=== PATIENT | female | born 1990 | race Caucasian/White ===

== ENCOUNTER 2019-11-17 05:06 | Inpatient (IN) | payer OTHER ==
--- NOTE | 2019-11-12 06:34 | PCM.LDHP ---
L&D History of Present Illness - General Date of Service: 11/17/19 Admit Problem/Dx: Admission Diagnosis/Problem Admission Diagnosis/Problem 11/12/19 06:24 Ce is a 29-year-old 2 para 1001 white female who will be admitted on 11/17/2019 at 39-0/7 weeks gestational age with an FESTUS of 11/24/2019 for an elective repeat section. Source of Information: Patient History Limitations: Reports: No Limitations - History of Present Illness Introduction:: Ce is a 29-year-old 2 para 1001 white female who will be admitted on 11/17/2019 at 39-0/7 weeks gestational age with an FESTUS of 11/24/2019 for an elective repeat section.The procedure, risks, benefits, alternatives of care including attempt at trial labor after section for an attempt at vaginal after section are all discussed in detail patient. She appears to understand and wishes to proceed. PANEL BEATER history: Patient is a 2 para 1001. FESTUS of 11/24/2019 was determined by her certain last menstrual periods starting 02/17/2019 supported by 3 ultrasounds during the course of rinsing done on 05/06/2019, 07/07/2019 at 08/04/2019. Previous section was done for failure of second stage of labor as patient pushed for 3 hours was not able to deliver the baby. She desires repeat section at this time. B strep negative. She declined genetic testing. [place] depression screening score on 07/01/2019 was 0/30. She has had flu vaccination on 07/01/2019. She plans to breast-feed. Patient is up-to-date regarding her influenza given on 07/01/2019. Her Tdap was given on 09/21/2019. She is rubella immune. She is up-to-date regarding her HPV vaccination, 2009 her hepatitis B vaccination 2017 and her meningococcal vaccination on 04/22/2008. course has been relatively unremarkable she had her first visit on 04/28/2019 had regular care throughout the . Her weight is 221.4 pounds to 243 pounds 422 pound weight gain. Vital signs remained stable throughout . Fundal height growth was appropriate. Laboratory testing shows blood to be a positive with negative CT screen. First laboratory testing showed hemoglobin 12.8 g/dL and platelets 3 240,000. She is rubella immune. RPR is nonreactive. Hepatitis B surface antigen and HIV assays were both negative. Gonorrhea and chlamydia tests were both negative. Second trimester labs showed hemoglobin 13.0 g/dL and platelets at 233,000. Diabetic screening test showed a level of 103 which was normal. Hemoglobin on 08/24/2019 was 11.3. At that time was nonreactive. Group B strep screen was negative. Allergies: None Medications: 1. vitamins daily Past medical history: Unremarkable Past surgical history: 1. 02/23/20168 lbs. 0 oz. male infant Family history: Well. Father at age 65 secondary to CVA. 5 brothers are all alive and well. 3 sisters all alive and well. Maternal grandmother is secondary to parkinsonism and old age. Paternal grandfather, paternal grandmother, paternal grandfather all deceasedcauses unknown. There is no family history of cancer, bleeding or blood clotting disorders, anesthesia related issues, related issues. She did have 1 paternal uncle secondary to oral cancer. He did have a history of smoking. Social history: Patient is . Her is Jeronimo Alvarez. She works at [employer]. They live in [place]. She does not use any significant most alcohol , drugs or tobacco. Review of systems: In general patient has no complaints. Baby has been active. No significant contractions noted. Skin: Negative Lungs: No infectious symptoms or shortness of breath Cardiovascular: No chest pain or exercise intolerance Breasts: Only changes of those associated with .. GI: Negative : changes. Musculoskeletal: Negative Neurological: Negative In general the patient is well-developed, well-nourished, pleasant female of stated age in no acute distress. On last evaluation in clinic on 11/11/2019 patient's blood pressures 128/68 her weight was 243 pounds with a pregravid weight of 221.4 pounds. Pregravid BMI was 34.2 pounds. Height is 5 feet 8 inches. heart rate was 143 pounds at last visit. Skin is warm dry without lesions. HEENT, neck and back within normal limits. Lungs are clear with good breath sounds in all lung cai. Cardiovascular exam shows regular and rhythm without murmurs. Rest exam is deferred having been done at first medical visit follow-up normal. Abdomen is gravid with fundal height of 39 cm. Baby in vertex presentation.. Genital per digital last done on 11/04/2019 shows cervix at 2 cm dilation, 60% effacement, soft, mid position and -3 station.. Extremities and neurological exam are grossly within normal limits. 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: , Other (See Below) Other OB/BYN History: dysmenorrhea Psychiatric History: Reports: Anxiety - Infectious Disease History Infectious Disease History: Reports: Chicken Pox H&P Review of Systems - Review of Systems: Review Of Systems: See Below L&D Exam - Exam Exam: See Below - Patient Data Lab Results Last 24 hrs: Laboratory Results - last 24 hr 11/11/19 11/11/19 11/11/19 Range/Units 14:56 14:56 14:56 WBC 8.76 (3.98-10.04) K/mm3 RBC 4.56 (3.98-5.22) M/mm3 Hgb 12.9 (11.2-15.7) gm/dl Hct 39.0 (34.1-44.9) % MCV 85.5 (79.4-94.8) fl MCH 28.3 (25.6-32.2) pg MCHC 33.1 (32.2-35.5) g/dl RDW Std Deviation 44.5 (36.4-46.3) fL Plt Count 250 (182-369) K/mm3 MPV 11.6 (9.4-12.3) fl Neut % (Auto) 76.5 H (34.0-71.1) % Lymph % (Auto) 14.7 L (19.3-51.7) % Potter % (Auto) 7.9 (4.7-12.5) % Eos % (Auto) 0.6 L (0.7-5.8) Baso % (Auto) 0.2 (0.1-1.2) % Neut # (Auto) 6.70 H (1.56-6.13) K/mm3 Lymph # (Auto) 1.29 (1.18-3.74) K/mm3 Potter # (Auto) 0.69 H (0.24-0.36) K/mm3 Eos # (Auto) 0.05 (0.04-0.36) K/mm3 Baso # (Auto) 0.02 (0.01-0.08) K/mm3 RPR Non-reactive (NONREACTIVE) Blood Type A POSITIVE Gel Antibody Screen Negative Result Diagrams: 11/11/19 14:56 Problem List Initiated/Reviewed/Updated: Yes Assessment/Plan Comment:: 1. 39 0/7 week intrauterine upon admission on 11/17/2019 for elective repeat section. Her done for failed second stage of labor after 3 hours of pushing. Procedure, risks, benefits, alternatives of care including attempt at all discussed with patient. She appears to understand and wishes to proceed with . 2. Patient plans to breast-feed. 3. Risk factors for the including increased weight and history of previous section 4. Rubella titer shows immunity 5. Patient is up-to-date regarding her Tdap and her flu shot. Plan: 1. Repeat lower segment transverse section through. 2. Routine preoperative laboratory testing new past 3. SCDs for DVT prophylaxis and surgery 4. Ancef 2 g IV preop for infection prophylaxis 5. Support breast-feeding decision.
[~2019-11-17 05:06] MED LIST: Lactated Ringers 1,000 ML IV SCH; Lidocaine 1%/Sod Bicarbonate in NS 8.4% 1 ML Syringe IDERM PRN; Oxytocin/Lactated Ringers 20 UNIT/1,000 ML BAG IV SCH; Sodium Chloride 0.9% 10 ML Syringe FLUSH PRN
[2019-11-17] MEDS: Lactated Ringers 1,000 ML IV SCH ×2 (05:40→06:46)
[2019-11-17] MEDS ORDERED: Citric Acid/Sodium Citrate Solution 30 ML Cup PO ONE (06:00)
[2019-11-17] MEDS ORDERED: Metoclopramide 10 MG/2 ML SDV IVPUSH ONE (06:00)
--- NOTE | 2019-11-17 06:59 | PCM.PREANE ---
Preanesthetic Assessment - Anesthesia/Transfusion/Family Hx Anesthesia History: Prior Anesthesia Without Reaction Transfusion History: No Prior Transfusion(s) - Review of Systems General: No Symptoms Pulmonary: No Symptoms Cardiovascular: No Symptoms Gastrointestinal: No Symptoms Neurological: No Symptoms Other: Reports: None - Physical Assessment Vital Signs: Last Vital Signs Temp 98.4 F 11/17/19 05:21 Pulse 84 11/17/19 05:21 Resp 15 11/17/19 05:21 BP 128/82 11/17/19 05:21 Pulse Ox 99 11/17/19 05:21 Height: 1.73 m Weight: 110.858 kg ASA Class: 2 Mental Status: Alert & Oriented x3 Airway Class: Mallampati = 1 Dentition: Reports: Normal Dentition Thyro-Mental Finger Breadths: 3 Mouth Opening Finger Breadths: 3 ROM/Head Extension: Full Lungs: Clear to Auscultation, Normal Respiratory Effort Cardiovascular: Regular Rate, Regular Rhythm - Lab Values: Laboratory Last Values WBC 6.64 K/mm3 (3.98-10.04) 11/17/19 06:00 RBC 4.44 M/mm3 (3.98-5.22) 11/17/19 06:00 Hgb 12.2 gm/dl (11.2-15.7) 11/17/19 06:00 Hct 38.4 % (34.1-44.9) 11/17/19 06:00 MCV 86.5 fl (79.4-94.8) 11/17/19 06:00 MCH 27.5 pg (25.6-32.2) 11/17/19 06:00 MCHC 31.8 g/dl (32.2-35.5) L 11/17/19 06:00 RDW Std Deviation 45.8 fL (36.4-46.3) 11/17/19 06:00 Plt Count 209 K/mm3 (182-369) 11/17/19 06:00 MPV 11.3 fl (9.4-12.3) 11/17/19 06:00 Neut % (Auto) 68.1 % (34.0-71.1) 11/17/19 06:00 Lymph % (Auto) 21.5 % (19.3-51.7) 11/17/19 06:00 [place] % (Auto) 9.3 % (4.7-12.5) 11/17/19 06:00 Eos % (Auto) 0.6 (0.7-5.8) L 11/17/19 06:00 Baso % (Auto) 0.2 % (0.1-1.2) 11/17/19 06:00 Neut # (Auto) 4.52 K/mm3 (1.56-6.13) 11/17/19 06:00 Lymph # (Auto) 1.43 K/mm3 (1.18-3.74) 11/17/19 06:00 [place] # (Auto) 0.62 K/mm3 (0.24-0.36) H 11/17/19 06:00 Eos # (Auto) 0.04 K/mm3 (0.04-0.36) 11/17/19 06:00 Baso # (Auto) 0.01 K/mm3 (0.01-0.08) 11/17/19 06:00 RPR Non-reactive (NONREACTIVE) 11/11/19 14:56 Blood Type A POSITIVE 11/11/19 14:56 Gel Antibody Screen Negative 11/11/19 14:56 - Allergies Allergies/Adverse Reactions: Allergies Allergy/AdvReac Type Severity Reaction Status Date / Time No Known Allergies Allergy Verified 02/22/16 22:59 - Acknowledgements Anesthesia Type Planned: Spinal Pt an Appropriate Candidate for the Planned Anesthesia: Yes Alternatives and Risks of Anesthesia Discussed w Pt/Guardian: Yes Pt/Guardian Understands and Agrees with Anesthesia Plan: Yes PreAnesthesia Questionnaire - Past Health History Medical/Surgical History: Denies 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 Previous 02/2016 Psychiatric History: Reports: Anxiety - Infectious Disease History Infectious Disease History: Reports: Chicken Pox - Past Surgical History Female Surgical History: Reports: Section (2016) - SUBSTANCE USE Smoking Status *Q: Never Smoker Tobacco Use Within Last Twelve Months: No Second Hand Smoke Exposure: No Recreational Drug Use History: No - HOME MEDS Home Medications: Home Meds Pnv95/Iron Fum/Folic Acid [ Caplet] 02/22/16 [History] Acetaminophen/oxyCODONE [Percocet 325-5 MG] 2 tab PO Q4H PRN #30 tablet [Rx] Ibuprofen [IJD: Ibuprofen] 600 mg PO Q4H #30 tablet 02/26/16 [Rx] - CURRENT (IN HOUSE) MEDS Current Meds: Current Medications Cefazolin Sodium/Dextrose 2 gm (/ Premix) 50 mls @ 100 mls/hr IV ONETIME ONE Stop: 11/17/19 07:29 Lactated Ringer's (Ringers, Lactated) 1,000 mls @ 125 mls/hr IV ASDIRECTED BETTY Last Admin: 11/17/19 05:40 Dose: 999 mls/hr Oxytocin/Lactated Ringer's (Pitocin In Lr 20 Units/1,000 Ml) 20 unit in 1,000 mls @ 500 mls/hr IV TITRATE BETTY; Protocol Sodium Chloride (Saline Flush) 10 ml FLUSH ASDIRECTED PRN PRN Reason: Keep Vein Open Discontinued Medications Citric Acid/Sodium Citrate (Bicitra Solution) 30 ml PO ONETIME ONE Stop: 11/17/19 06:01 Lactated Ringer's (Ringers, Lactated) 1,000 mls @ 125 mls/hr IV ASDIRECTED BETTY Lidocaine/Sodium Bicarbonate (Buffered Lidocaine 1% In Ns 8.4%) 0.25 ml IDERM ONETIME PRN PRN Reason: Prior to IV Start Metoclopramide HCl (Reglan) 10 mg IVPUSH ONETIME ONE Stop: 11/17/19 06:01 Sodium Chloride (Saline Flush) 10 ml FLUSH ASDIRECTED PRN PRN Reason: Keep Vein Open
[2019-11-17] MEDS ORDERED: ceFAZolin 2 GM in Premix Bag 1 BAG IV ONE (07:00)
[2019-11-17] MEDS ORDERED: Bupivacaine 0.5% 30 ML SDV ONE (07:08)
[2019-11-17] MEDS ORDERED: Oxytocin 10 Units/1 ML SDV ONE ×2 (07:15→08:26)
[2019-11-17] MEDS ORDERED: fentaNYL 100 MCG/2 ML SDV ONE (07:15)
[2019-11-17] MEDS ORDERED: Morphine PF 10 MG/10 ML SDV ONE (07:16)
[2019-11-17] MEDS ORDERED: Ondansetron 4 MG/2 ML SDV IVPUSH PRN (07:32)
[2019-11-17] MEDS ORDERED: fentaNYL 100 MCG/2 ML SDV IVPUSH PRN (07:32)
[2019-11-17] MEDS ORDERED: diphenhydrAMINE 50 MG/ML SDV IVPUSH PRN ×2 (07:32→10:22)
[2019-11-17] MEDS ORDERED: ceFAZolin 1 GM Vial ONE (07:53)
[2019-11-17] MEDS ORDERED: Lactated Ringers 1,000 ML ONE ×2 (07:59→08:28)
[2019-11-17] MEDS ORDERED: Ketorolac 30 MG/ML SDV ONE (08:13)
--- NOTE | 2019-11-17 08:57 | PCM.OPNOTE ---
- General Post-Op/Procedure Note Date of Surgery/Procedure: 11/17/19 Operative Procedure(s): Repeat lower uterine segment transverse section through Pfannenstiel skin incision Findings: Patient had moderate scarring in the anterior abdominal wall. Baby is in a vertex presentation. Amniotic fluid was clear. Fallopian tubes and ovaries consistent with term . Pre Op Diagnosis: 1. 39-0/7 week intrauterine . 2. History of previous section desire for repeat section. Post-Op Diagnosis: Same Anesthesia Technique: Spinal Other Anesthesia Type: Marcaine 0.5%20 mL local Primary Surgeon: Jignesh Solis Secondary Surgeon: Blake Vick Anesthesia Provider: Roberto Guzmán Dock Pumper: Liz Thakur Reason Dock Pumper Was Necessary: Retraction, assistance, patient safety, quality of care. Fluid Replacement, Intraop: 2,200 Output, Urine Amount: 150 EBL in mLs: 700 Drain/Tube Comments:: Indwelling bladder catheter Complications: None Condition: Good Free Text/Narrative:: Surgery duration: 45 minutes Surgery duration: Procedure: The patient is appropriately consented. Patient was transferred to the room and placed in a sitting position. Spinal anesthesia was administered. After confirmation of adequate anesthesia patient was placed in a supine position with a wedge under her right side to facilitate left lateral positioning. The patient was prepped and draped in usual fashion after Aguilera catheter was already placed . The anesthetic was checked and found to be adequate. 20 mL of Marcaine 0.5% was injected locally in the Pfannenstiel incision site. The Pfannenstiel skin incision was then made and carried down through skin, subcutaneous and fascial layers. The fascia was then undermined superiorly and inferiorly to allow for adequate operating room. Moderate scarring was encountered. The recti muscles midline and preperitoneal fat was bluntly dissected. Peritoneal cavity was entered longitudinally. The vesicouterine peritoneum was then incised transversely and bladder flap was developed. Myometrium was incised transversely to the level of the amniotic sac. This incision was extended bilaterally in a blunt fashion. The amniotic sac was then ruptured resulting in clear amniotic fluid. A hand is placed in the low uterine segment but with this maneuver was unable to deliver the head. Vacuum extractor was placed on the baby's head and the baby's head was brought forth through the incision. The baby was completely delivered using fundal pressure in a routine fashion. The nose and mouth were bulb suctioned. Baby's cord was clamped x2 cut and baby was handed off to attending pulp bleacher Dr Smith. Placenta was expressed after cord blood was obtained. Uterus was then exteriorized to allow for easier closure. The cervix was assessed and found to be dilated adequately to allow egress of blood. The uterus was closed in 2 layers. The first layer a running locked suture of 0 Monocryl, the second layer a running locked vertical mattress suture of 0 Monocryl. [id number] suture was placed at mid incision to control 1 bleeder. Hemostasis confirmed at this time. Sponge instrument needle counts are correct. The uterus was returned to the abdominal cavity and lateral gutters were cleared of blood. Once again sponge needle counts are correct. The anterior abdominal wall was closed with a #1 PDS suture from angle to angle. The subcutaneous area was found to be free of any bleeders. interrupted sutures of 3-0 Monocryl were used to reapproximate the subcutaneous layer.Skin was closed with a running subcuticular stitch of 3- 0 Monocryl in a vertical mattress suture fashion using a Tono needle. Prineo mesh/glue was then applied to further approximate the incision. It should be noted that patient received 2 g of Ancef preoperatively for infection prophylaxis and had Pitocin infused after delivery of the placenta to facilitate uterine contraction. She also had sequential compression stockings in place for DVT prophylaxis. Patient was discharged from the operating room in satisfactory condition.
--- NOTE | 2019-11-17 09:22 | PCM.POSTAN ---
POST ANESTHESIA ASSESSMENT - MENTAL STATUS Mental Status: Alert, Oriented - VITAL SIGNS Vital Signs: Last Vital Signs Temp 97.5 F 11/17/19 08:49 Pulse 84 11/17/19 05:21 Resp 18 11/17/19 09:15 BP 121/59 L 11/17/19 09:15 Pulse Ox 97 11/17/19 09:15 - RESPIRATORY Respiratory Status: Respiratory Rate WNL, Airway Patent, O2 Saturation Stable - CARDIOVASCULAR CV Status: Pulse Rate WNL, Blood Pressure Stable - GASTROINTESTINAL GI Status: No Symptoms - PAIN Pain Score: 0 (post SAB) - POST OP HYDRATION Hydration Status: Adequate & Stable
[2019-11-17] MEDS ORDERED: Ondansetron 4 MG/2 ML SDV IV PRN (10:22)
[2019-11-17] MEDS ORDERED: ePHEDrine 50 MG/ML SDV IVPUSH PRN (10:22)
[2019-11-17] MEDS ORDERED: Docusate Sodium 100 MG Cap PO PRN (10:22)
[2019-11-17] MEDS ORDERED: Naloxone 0.4 MG/ML SDV IVPUSH PRN (10:22)
[2019-11-17] MEDS ORDERED: Dextrose 5%-Lactated Ringers 1,000 ML IV SCH (10:22)
[2019-11-17] MEDS: Simethicone 80 MG Tab.Chew PO SCH ×4 (10:49→20:36)
[2019-11-17] MEDS: Prenatal Multivitamin with Calcium/Folic Acid/Iron Tab PO SCH (17:22)
[2019-11-17] MEDS: Acetaminophen/oxyCODONE 325-5 MG Tab PO PRN (20:37)
[2019-11-17] MEDS: Ibuprofen 800 MG Tab PO SCH ×2 (22:38→23:00)
[2019-11-18] MEDS: Acetaminophen/oxyCODONE 325-5 MG Tab PO PRN ×3 (04:32→20:42)
[2019-11-18] MEDS: Ibuprofen 800 MG Tab PO SCH ×3 (06:44→23:54)
--- NOTE | 2019-11-18 07:43 | PCM48HPAN ---
Post Anesthesia Note - EVALUATION WITHIN 48HRS OF ANESTHETIC Vital Signs in Normal Range: Yes Patient Participated in Evaluation: Yes Respiratory Function Stable: Yes Airway Patent: Yes Cardiovascular Function Stable: Yes Hydration Status Stable: Yes Pain Control Satisfactory: Yes Nausea and Vomiting Control Satisfactory: Yes Mental Status Recovered: Yes Vital Signs: Last Vital Signs Temp 36.8 C 11/17/19 22:48 Pulse 100 11/17/19 22:48 Resp 16 11/18/19 06:46 BP 116/65 11/17/19 22:48 Pulse Ox 97 11/18/19 06:00
[2019-11-18] MEDS: Prenatal Multivitamin with Calcium/Folic Acid/Iron Tab PO SCH (09:32)
[2019-11-18] MEDS: Simethicone 80 MG Tab.Chew PO SCH ×4 (09:32→22:58)
[2019-11-19] MEDS: Acetaminophen/oxyCODONE 325-5 MG Tab PO PRN ×2 (02:30→09:20)
--- NOTE | 2019-11-19 07:04 | PCM.SN ---
- Free Text/Narrative Note: Postoperative day #1: 11/18/2019 note: Patient is doing well in the period. Minimal lochia, voiding well, ambulated without problems. Nursing without concerns. Patient is afebrile, vital signs are stable Good breath sounds in all lung cai. Cardiovascular exam shows regular rate and rhythm Abdomen is flat, soft, uterus is below the umbilicus and is firm and nontender. Incision dry, intact. Legs are nontender. Assessment: recovery going well. Plan: Routine care. Patient be discharged home within the next 24-48 hours.
[2019-11-19] MEDS: Ibuprofen 800 MG Tab PO SCH (07:27)
[2019-11-19] MEDS: Prenatal Multivitamin with Calcium/Folic Acid/Iron Tab PO SCH (09:08)
[2019-11-19] MEDS: Simethicone 80 MG Tab.Chew PO SCH (09:09)
[2019-11-19 11:14] VITALS: BP 123/66; PULSE 80
== END 2019-11-19 10:00 | disposition home or self-care (01) | DRG 788 ==
LOC: JD.OB 05:06
PROVIDERS: ADMIT Obstetrics & Gynecology; ATTEND Obstetrics & Gynecology
PROC: 10D00Z1 Extraction of Products of Conception, Low, Open Approach (ICD-10-PCS; principal; 2019-11-17)
DX: O34.211 Maternal care for low transverse scar from previous cesarean delivery (principal); Z37.0 Single live birth; Z3A.39 39 weeks gestation of pregnancy
CPT/HCPCS: 36415; 59025; 85025; 86592; 86850; 86900; 86901; 94762; A9270-GY; J0690; J1200; J1885; J2270; J2370; J2405; J2590; J2765; J3010; J3490; J7120; J7121

== ENCOUNTER → 2021-05-02 | Day surgery (SDC) | payer OTHER ==
[~2021-05-02] MED LIST changes: +Ibuprofen 600 MG Tab PO PRN; +Ketorolac 30 MG/ML SDV IVPUSH ONE; +Lactated Ringers 1,000 ML ONE; +Midazolam 1 MG/ML 2 ML SDV ONE; +Ondansetron 4 MG/2 ML SDV IVPUSH PRN; +Ondansetron 4 MG/2 ML SDV ONE; -Oxytocin/Lactated Ringers 20 UNIT/1,000 ML BAG IV SCH; +Propofol 200 MG/20 ML SDV ONE; +fentaNYL 100 MCG/2 ML SDV ONE
--- NOTE | 2021-05-02 09:42 | PCM.PREANE ---
Preanesthetic Assessment - Procedure Proposed Procedure: Dilation and curettage - Anesthesia/Transfusion/Family Hx Anesthesia History: Prior Anesthesia Without Reaction Family History of Anesthesia Reaction: No Transfusion History: No Prior Transfusion(s) Intubation History: Unknown - Review of Systems General: No Symptoms Pulmonary: No Symptoms Cardiovascular: No Symptoms Gastrointestinal: Abdominal Pain (uterine contractions), Nausea Neurological: No Symptoms Other: Reports: None - Physical Assessment NPO Status Date: 05/01/21 NPO Status Time: 21:30 Vital Signs: BP 124/79 HR 89 96% 98.8 RR 20 Height: 1.73 m Weight: 92 kg ASA Class: 2 Mental Status: Alert & Oriented x3 Airway Class: Mallampati = 2 Dentition: Reports: [place](s), [place] Thyro-Mental Finger Breadths: 3 Mouth Opening Finger Breadths: 3 ROM/Head Extension: Full Lungs: Clear to Auscultation, Normal Respiratory Effort Cardiovascular: Regular Rate, Regular Rhythm, No Murmurs - Lab Values: Awaiting for labs to result, will assess labs to ensure within acceptable levels prior to going to OR - Allergies Allergies/Adverse Reactions: Allergies Allergy/AdvReac Type Severity Reaction Status Date / Time No Known Allergies Allergy Verified 02/22/16 22:59 - Blood Blood Available: No Product(s) Available: None - Anesthesia Plan Pre-Op Medication Ordered: None - Acknowledgements Anesthesia Type Planned: General Anesthesia, MAC Pt an Appropriate Candidate for the Planned Anesthesia: Yes Alternatives and Risks of Anesthesia Discussed w Pt/Guardian: Yes Pt/Guardian Understands and Agrees with Anesthesia Plan: Yes PreAnesthesia Questionnaire - Past Health History Medical/Surgical History: Denies Medical/Surgical History HEENT History: Reports: Impaired Vision Other HEENT History: Contacts Cardiovascular History: Reports: None Respiratory History: Reports: None Gastrointestinal History: Reports: None Genitourinary History: Reports: None 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 Previous 2020 Musculoskeletal History: Reports: None Neurological History: Reports: None Psychiatric History: Reports: Anxiety Endocrine/Metabolic History: Reports: None Hematologic History: Reports: None Immunologic History: Reports: None Oncologic (Cancer) History: Reports: None Dermatologic History: Reports: None - Infectious Disease History Infectious Disease History: Reports: Chicken Pox - Past Surgical History Female Surgical History: Reports: Section Other Female Surgeries/Procedures: x 2 - SUBSTANCE USE Tobacco Use Status *Q: Never Tobacco User Tobacco Use Within Last Twelve Months: No Second Hand Smoke Exposure: No Days Per Week of Alcohol Use: 0 Number of Drinks Per Day: 0 Total Drinks Per Week: 0 Recreational Drug Use History: No - HOME MEDS Home Medications: Home Meds Pnv95/Iron Fum/Folic Acid [ Caplet] 02/22/16 [History] Acetaminophen/oxyCODONE [Percocet 325-5 MG] 2 tab PO Q4H PRN #30 tablet 02/26/16 [Rx] Ibuprofen [IJD: Ibuprofen] 600 mg PO Q4H #30 tablet 02/26/16 [Rx] Acetaminophen/oxyCODONE [Percocet 325-5 MG] 1 tab PO Q4H PRN tablet 11/19/19 [Rx] Ibuprofen [Motrin] 800 mg PO Q8H tablet 11/19/19 [Rx] Vit with Ca/FA/Iron [ Plus Iron] 1 each PO DAILY tablet 11/19/19 [Rx]
--- NOTE | 2021-05-02 11:42 | PCM48HPAN ---
Post Anesthesia Note - EVALUATION WITHIN 48HRS OF ANESTHETIC Vital Signs in Normal Range: Yes Patient Participated in Evaluation: Yes Respiratory Function Stable: Yes Airway Patent: Yes Cardiovascular Function Stable: Yes Hydration Status Stable: Yes Pain Control Satisfactory: Yes Nausea and Vomiting Control Satisfactory: Yes Mental Status Recovered: Yes Vital Signs: Last Vital Signs Temp 37.1 C 05/02/21 09:10 Pulse 89 05/02/21 09:10 Resp 20 05/02/21 09:10 BP 124/79 05/02/21 09:10 Pulse Ox 96 05/02/21 09:10
--- NOTE | 2021-05-02 11:47 | PCM.OPNOTE ---
- General Post-Op/Procedure Note Date of Surgery/Procedure: 05/02/21 Operative Procedure(s): Dilation and suction curettage Findings: Uterus sounded to 10.5 cm. Uterus is anterior. There is consistent with gestational age. No adnexal abnormalities are noted. Cervix appeared to be dilated proximally 1 cm. Tissue removed from uterus is consistent with products of conception. Pre Op Diagnosis: Miscarriage Post-Op Diagnosis: Same Anesthesia Technique: MAC Primary Surgeon: Jignesh Solis Pathology: Endometrial curettings Fluid Replacement, Intraop: 1,000 EBL in mLs: 25 Complications: None Condition: Good Free Text/Narrative:: Surgery duration: 8 minutes The patient was taken to the operating room and placed in a supine position operating table. After adequate MAC anesthesia patient was placed in a dorsal lithotomy position. A weighted speculum was placed in the vagina. Cervix is found to be dilated to approximately 1 centimeters. Uterus was sounded to approximately 10.5 cm. It was found to be anterior and mid position. An 8 mm suction curette was then introduced in routine fashion the endometrial cavity was evacuated. Moderate amount tissue was obtained. Findings consistent with products of conception. A medium size sharp curet was introduced and very careful fashion the endometrial cavity was curetted. It was be clear of any further tissue. The suction curet was then reintroduced and small and blood was removed. No further tissue was removed. This point the D&C was discontinued. The single-toothed tenaculum used to stabilize the anterior lip the cervix was removed. Blood was removed from the vagina with a stick sponge and the weighted speculum was removed from the vagina. The patient was awakened from MAC anesthesia. The patient was discharged from the operating room in good condition.
[2021-05-02 12:35] VITALS: BP 105/70; PULSE 78
== END | disposition home or self-care (01) ==
LOC: JD.SDS 09:06
PROVIDERS: ATTEND Obstetrics & Gynecology
DX: O03.9 Complete or unspecified spontaneous abortion without complication (principal)
CPT/HCPCS: 36415; 59812; 85025; J1885; J2250; J2405; J2704; J3010; J7120; 01965